=== PATIENT | female | born 1965 | race Caucasian/White ===

== ENCOUNTER 2023-08-01 13:36 | Emergency (ER) | payer OTHER, SELFPAY ==
--- NOTE | ~2023-08-01 | CT_ITS ---
EXAMINATION: CT abdomen pelvis w IV con CLINICAL INFORMATION: Reason for Exam epi and RUQ pain, pls eval for choledoco COMPARISON: No prior CT available for comparison. TECHNIQUE: Multidetector volumetric imaging was performed from the superior aspect of the liver through the pubic symphysis 85 mL Omnipaque 350 injected Sagittal and coronal reformatted images were obtained on the technologist's workstation. This CT examination was performed using dose optimization techniques as appropriate, variously including the following: *Automated exposure control *Adjustment of mA and/or kV according to patient size (this includes techniques or standardized protocols for targeted exams where dose is matched to indication/reason for exam; i.e. extremities or head) *Use of iterative reconstruction technique DLP: 532 mGy-cm FINDINGS: LOWER THORAX: Included lung bases are clear. HEPATOBILIARY: No focal hepatic lesions. No biliary ductal dilatation. GALLBLADDER: Gallbladder has been removed SPLEEN: Spleen is normal in size. PANCREAS: No focal mass or ductal dilatation. STOMACH AND GASTROINTESTINAL TRACT: Stomach is grossly unremarkable. There is no bowel distention or thickening. Appendix not directly visualized however no dilated blind loop around the cecum to suggest appendicitis. ADRENALS: No adrenal nodules. KIDNEYS/URETERS: There is fullness of renal pelvis sees bilaterally right more than left, probably extrarenal pelvis versus hydronephrosis with a transition at the ureteropelvic junction no stone or obstructing mass found. There is a simple cyst in the left kidney 1.7 cm Bosniak class I, with Hounsfield unit attenuation of 8, this is likely benign, no follow-up imaging is recommended. URINARY BLADDER: Partially decompressed. PELVIC VISCERA: There is circumferential wall thickening of the rectal wall and some fullness at the anorectal junction concerning for proctitis, cannot rule out pathologic process. Attention to correlation with physical exam and follow-up outpatient GI consultation for screening colonoscopy recommended. PERITONEUM: No free air or fluid. LYMPH NODES: No lymphadenopathy. VASCULAR:Abdominal aorta normal in size, no aneurysm found. BONES, ABDOMINAL WALL AND SOFT TISSUES: Age-appropriate changes of the spine and skeletal system, no destructive osteolytic or osteosclerotic bone lesion found CT/CT abdomen pelvis w IV con IMPRESSION: 1. There is fullness of renal pelvis bilaterally right more than left, probably extrarenal pelvis versus hydronephrosis with a transition at the UPJ, no stone or obstructing mass found, this could be congenital or developmental due to crossing vessel. 2. There is circumferential wall thickening of the rectum and fullness of the anorectal junction concerning for PROCTITIS, cannot rule out pathologic process and rectal mass. Please correlate with physical exam, follow up GI consultation recommended, correlation with colonoscopy. 3. Appendix not directly visualized however no dilated blind loop around the cecum to suggest appendicitis. 4. Gallbladder has been removed. (Referring physician staff is being called, by physician staff assistance, to be alerted of the above critical findings and recommendati08/01/2023 10:57 PM:57 PM EM
[2023-08-01 13:39] VITALS: BP 126/73; PULSE 92; RESP 18; TEMP 36.4; O2SAT 97; BMI 29.3
--- NOTE | 2023-08-01 13:49 | ED_ITS ---
HPI - General Adult General Chief complaint: Abdominal Pain Stated complaint: Abd pain Time Seen by Provider: 08/01/23 20:58 History of Present Illness HPI narrative: The patient is a 57-year-old woman with a history of a cholecystectomy, an appendectomy, and hysterectomy. She presents with 2 days of abdominal pain that she says is primarily in her epigastrium but which seems to radiate to the right side towards her right flank. She says that the pain is worse than the pain she experienced when she had her gallbladder removed. She says that she feels like her abdomen is exploding. She has had nausea but no vomiting. She had multiple loose stools yesterday and took Imodium. She only had 2 bowel movements today. Decreased appetite. No fever. Related Data Previous Rx's Medication Instructions Recorded cephalexin 500 mg capsule 500 mg PO BID #10 caps 08/02/23 omeprazole 40 mg capsule,delayed 40 mg PO DAILY #30 caps 08/02/23 release sucralfate 1 gram tablet 1 g PO TID PRN Epigastric pain #60 08/02/23 tabs Allergies Allergy/AdvReac Type Severity Reaction Status Date / Time No Known Allergies Allergy Verified 08/01/23 13:50 Review of Systems 2 Review of Systems: Yes all other systems are reviewed and are negative [facility] Social History Social History Smoked in Last 30 Days: No Use of substances other than those prescribed or required for medical reasons: No Advance Directives: No Advance Directives Information Provided: No Patient : No Physical Exam ED Vital Signs: Vital Signs - 24 hr 08/01/23 13:39 08/01/23 20:53 Temperature 97.5 F 97.6 F Pulse Rate 92 82 Respiratory Rate 18 16 Blood Pressure 126/73 121/63 Pulse Oximetry 97 98 Oxygen Delivery Method Room Air Room Air BMI result Body Mass Index 29.3 Const Other: The patient is awake, alert, pleasant, cooperative. She does not appear in obvious distress. HENMT Other: Face is symmetrical, mucous membranes moist Eyes Other: Pupils are round equal, conjunctivae are clear, extraocular movements intact Neck Other: No swelling, no JVD Resp Effort & Inspection: normal respiratory effort Auscultation: clear to auscultation bilaterally Cardio Rate: regular rate Rhythm: regular rhythm Heart sounds: S1 normal heart sound present and S2 normal heart sound present GI Other: The abdomen is soft. There is tenderness in both the right upper and lower quadrants and in the epigastrium. Skin Other: Skin is dry and unremarkable Neuro Other: Awake, alert, appropriate, moving all extremities normally, grossly neurologically intact. Extrem Other: No peripheral edema Course Course Course Narrative: RME performed by Amanda Garcia PA-C. Patient is a 57 year old assigned female at presenting to the emergency department with abdominal pain. Detailed physical exam and review of systems are deferred to the order picker/assembler. Labs ordered. Patient placed back in the waiting room pending room availability and results. Medications Administered Discontinued Medications Generic Name Dose Route Start Last Admin Trade Name Freq PRN Reason Stop Dose Admin Cephalexin HCl 500 mg 08/02/23 00:15 08/02/23 00:34 Cephalexin 500 Mg Capsule PO 08/02/23 00:16 500 mg ONCE ONE Administration Famotidine 20 mg 08/01/23 21:10 08/01/23 21:59 Famotidine/Pf 20 Mg/2 Ml Vial IVPUSH 08/01/23 21:11 20 mg ONCE ONE Administration Sodium Chloride 1,000 mls @ 999 mls/hr 08/01/23 21:15 08/01/23 23:29 Ns IV 08/01/23 22:15 Infused .Q1H1M MELITA Infusion Promethazine HCl 12.5 mg/ 50.5 mls @ 202 mls/hr 08/01/23 21:10 08/01/23 22:50 Sodium Chloride IV 08/01/23 21:11 Infused ONCE ONE Infusion Iohexol 85 ml 08/01/23 22:24 08/01/23 22:24 Iohexol 350 Mg/Ml 100 Ml Infus..Btl IV 08/01/23 22:25 85 ml ONCE ONE Administration Ketorolac Tromethamine 10 mg 08/01/23 21:10 08/01/23 21:59 Ketorolac Tromethamine 15 Mg/Ml Vial IVPUSH 08/01/23 21:11 10 mg ONCE ONE Administration Medical Decision Making Medical Decision Making [facility] Narrative: The patient is a 57-year-old female who presents with epigastric abdominal pain. She also reports having had a lot of diarrhea although this was mostly yesterday and improved with Imodium. She also has pain that radiates from her epigastrium to her right flank. Clinically the patient does not seem septic or unstable in any way. Vital signs are unremarkable. The patient's description of her epigastric symptoms seems most likely suggestive of gastritis. She has had a cholecystectomy (she has also had an appendectomy and a hysterectomy). The patient's labs were quite benign. Given the patient's extensive surgical history I felt it would be reasonable to obtain a CT of the abdomen although I did not have a terribly high suspicion for an acute surgical process. The patient's CT has a number of findings. The patient has bilateral fullness of the renal pelvis described as ?probably extrarenal pelvis versus hydronephrosis with a transition at the UPJ, no stone or obstructing mass found, this could be congenital or developmental due to crossing vessel. ? This findings bilateral although more prominent on the right. The CT also shows circumferential wall thickening of the rectum and fullness of the anorectal junction concerning for proctitis, can not rule out pathologic process and rectal mass. ? Given the patient's complaint of diarrhea she may have some inflammatory process related to her colon and rectum but she has a normal white count, and normal CRP. I doubt that the findings of proctitis would be an indication for antibiotics. With regard to the abnormal renal findings I contacted [facility] to see if there was any recent CT scan at that facility which might help decide whether the findings are chronic. I could not get any imaging studies from [facility]. The patient's urinalysis is not very abnormal. She has 6-10 white cells and trace leukocyte esterase and a small amount of blood. She was very equivocal about the question of urinary symptoms. She will be placed on cephalexin. Ultimately the patient felt much better after a dose of Toradol and famotidine. Given that her chief complaint was epigastric pain I still think that gastritis is probably the most likely cause of her pain and her other CT findings may be somewhat incidental. She will need to follow up with Urology to evaluate her renal pelvis findings. She should also follow up with her PCP and probably Gastroenterology with regard to the question of proctitis. She looks comfortable at the time of discharge and understands the need for follow-up. Lab Data 08/01/23 13:58 08/01/23 13:58 Labs: Lab Results 08/01/23 08/01/23 Range/Units 13:58 19:36 WBC 8.2 (4.8-10.8) X10*3/uL RBC 4.73 (4.20-5.50) X10*6/uL Hgb 13.8 (12.0-16.0) g/dl Hct 43.0 (37.0-47.0) % MCV 90.9 (80.0-98.0) fL MCH 29.2 (27.0-33.0) pg MCHC 32.1 (31.0-35.0) g/dl RDW 12.8 (11.0-16.0) % Plt Count 312 (160-400) X10*3/uL MPV 8.2 L (9.4-12.3) fL Immature Gran % (Auto) 0.2 (0.0-0.4) % Neut % (Auto) 59.0 (45-73) % Lymph % (Auto) 29.3 (20-40) % [place] % (Auto) 10.7 (2-11) % Eos % (Auto) 0.4 (0-4) % Baso % (Auto) 0.4 (0-2) % Lymph # (Auto) 2.4 (1.2-4.9) X10*3/uL [place] # (Auto) 0.9 (0.1-1.2) X10*3/uL Eos # (Auto) 0.0 (0.0-0.4) X10*3/uL Baso # (Auto) 0.0 (0.0-0.2) X10*3/uL Abs Immat Gran (auto) 0.02 (0.00-0.03) X10*3/uL Absolute Neuts (auto) 4.8 (2.0-8.3) x10*3/uL Absolute Nucleated RBC 0.000 (0.0-0.012) X10*3/uL Nucleated RBC % (auto) 0.0 (0.0-0.2) /100WBC Sodium 143 (135-145) mmol/L Potassium 4.4 (3.3-5.1) mmol/L Chloride 107 (96-108) mmol/L Carbon Dioxide 29 (22-29) mmol/L Anion Gap 11 L (12-20) BUN 15 (9-16) mg/dL Creatinine 0.72 (0.5-1.4) mg/dL Estim Creat Clear Calc 70.2 Estimated GFR > 60 Random Glucose 116 H (60-115) mg/dL Calcium 9.6 (8.4-10.2) mg/dL Total Bilirubin 0.4 (0.0-1.0) mg/dL AST 20 (5-31) U/L ALT 32 H (0-31) U/L Alkaline Phosphatase 79 (39-117) U/L C-Reactive Protein 0.19 (< or = 0.50) mg/dL Total Protein 7.9 (6.5-8.0) g/dL Albumin 4.3 (3.5-5.0) g/dL Lipase 31 (8-78) U/L Urine Color Yellow Urine Appearance Clear Urine pH 5.5 (5.0-9.0) Ur Specific [place] 1.025 (1.005-1.025) Urine Protein Negative (Neg-Trace) mg/dL Urine Glucose (UA) Negative (Negative) mg/dL Urine Ketones Negative (Negative) mg/dL Urine Blood Small (1+) H (Negative) Urine Nitrite Negative (Negative) Ur Leukocyte Esterase Trace H (Negative) Urine RBC 0-2 (0-2) /HPF Urine WBC 6-10 H (0-5) /HPF Ur Squamous Epith Cells 3-5 (0-2) /HPF Urine Bacteria 1+ (None Seen) Hyaline Casts 0-2 (0-2) /LPF Discharge Plan Discharge Clinical Impression: Acute epigastric pain, Bilateral hydronephrosis, Proctitis Patient Disposition: Home, Self-Care Instructions: Gastritis (ED) Additional Instructions: I think the pain in the middle of your upper abdomen is most likely related to stomach acid problems. This is called gastritis. You have been prescribed omeprazole. Please take the omeprazole once a day on a regular basis. This helps reduce acid production. In addition to the omeprazole sucralfate as a medication you may use on an as- needed basis. You may take this up to 3 times a day as needed. Your urine test suggested the possibility of a mild urinary infection. Please take the cephalexin (an antibiotic) 2 times a day as prescribed until done. Your CT scan shows that you have some swelling on each of your kidneys. This is called hydronephrosis. I do not know if this is something that you have had for a long time. Please contact the urology office to make an appointment to review this finding further. Additionally the CT scan shows some inflammatory changes near your rectum. The significance of this finding is unclear. I think it would be good for you to make an appointment with a hot walker to discuss this further. Therefore please plan on following up with your primary care doctor, Urology, and gastroenterology. Return to the emergency room if worse Prescriptions: New cephalexin 500 mg capsule 500 mg PO BID Qty: 10 0RF omeprazole 40 mg capsule,delayed release(DR/EC) 40 mg PO DAILY Qty: 30 0RF sucralfate 1 gram tablet 1 g PO TID PRN (Reason: Epigastric pain) Qty: 60 0RF Referrals: Abimael Espinosa MD [Physician] - (bilateral hydronephrosis) Macie Harrison MD [Primary Care Provider] - (Gastritis, bilateral hydronephrosis without stones) Mireille Heath MD [Physician] - (findings of proctitis) Interventions: ED Discharge Assessment Last Done: 08/02/23 00:42 Discharge Date/Time: 08/02/23 00:42
[2023-08-01 14:02] LABS: MANUAL DIFF FLAG NO
[2023-08-01 14:03] LABS: Basophils Percent Auto 0.4 % (0-2); Eosinophils Percent Auto 0.4 % (0-4); Hemoglobin 13.8 g/dl (12.0-16.0); Imm Gran Abs Auto 0.02 X10*3/uL (0.00-0.03); Imm Gran Pct Auto 0.2 % (0.0-0.4); Lymphocytes Absolute Auto 2.4 X10*3/uL (1.2-4.9); Lymphocytes Percent Auto 29.3 % (20-40); Mean Corpuscular HGB Conc 32.1 g/dl (31.0-35.0); Mean Corpuscular Hemoglobin 29.2 pg (27.0-33.0); Mean Corpuscular Volume 90.9 fL (80.0-98.0); Mean Platelet Volume 8.2 fL (9.4-12.3); Monocytes Absolute Auto 0.9 X10*3/uL (0.1-1.2); Monocytes Percent Auto 10.7 % (2-11); Neutrophils Absolute Auto 4.8 x10*3/uL (2.0-8.3); Platelet Count 312 X10*3/uL (160-400); Red Blood Count 4.73 X10*6/uL (4.20-5.50); Red Cell Distribution Width 12.8 % (11.0-16.0); White Blood Count 8.2 X10*3/uL (4.8-10.8)
[2023-08-01 14:22] LABS: Alanine Aminotransferase 32 U/L (0-31); Albumin Level 4.3 g/dL (3.5-5.0); Alkaline Phosphatase 79 U/L (39-117); Anion Gap 11 (12-20); Aspartate Amino Transferase 20 U/L (5-31); Bilirubin Total 0.4 mg/dL (0.0-1.0); Blood Urea Nitrogen 15 mg/dL (9-16); Calcium 9.6 mg/dL (8.4-10.2); Carbon Dioxide 29 mmol/L (22-29); Chloride 107 mmol/L (96-108); Creatinine Clr Calc Pharmacy 70.2; Estimated Glomerular Filt Rate > 60; Glucose Random 116 mg/dL (60-115); Potassium 4.4 mmol/L (3.3-5.1); Sodium 143 mmol/L (135-145); Total Protein 7.9 g/dL (6.5-8.0)
[2023-08-01 19:46] LABS: Appearance Urine Clear; Color Urine Yellow; Glucose Urine UA Negative (Negative); Leukocyte Esterase Urine Trace (Negative); Nitrite Urine Negative (Negative); PH 5.5 (5.0-9.0); Specific Gravity - Urine 1.025 (1.005-1.025); UMIC TRIGGER UACC YES; Urine Blood Small (1+) (Negative); Urine Ketones Negative (Negative); Urine Protein Negative (Neg-Trace)
[2023-08-01 19:56] LABS: Bacteria Urine 1+ (None Seen); Hyaline Casts Urine 0-2 /LPF (0-2); RBC Urine 0-2 /HPF (0-2); UACC Culture Trigger YES
[2023-08-01 20:53] VITALS: BP 121/63; PULSE 82; RESP 16; TEMP 36.4; O2SAT 98
[2023-08-01 21:13] LABS: C Reactive Protein 0.19 mg/dL (< or = 0.50); Lipase 31 U/L (8-78)
[2023-08-01] MEDS: 0.9 % Sodium Chloride 1,000 ML 999 ML IV (21:31)
[2023-08-01] MEDS: Ketorolac Tromethamine 15 MG/ML VIAL 10 MG IVPUSH (21:59)
[2023-08-01] MEDS: Famotidine/PF 20 MG/2 ML VIAL IVPUSH (21:59)
[2023-08-01] MEDS: iohexoL 350 MG/ML 100 ML INFUS..BTL 85 ML IV (22:24)
[2023-08-02] MEDS: cephALEXin 500 MG CAPSULE PO (00:34)
== END 2023-08-02 00:42 | disposition home or self-care (01) ==
PROVIDERS: Physician Assistant Medical; Emergency Provider Emergency Medicine; PCP Internal Medicine
DX: R10.13 Epigastric pain (principal); N13.30 Unspecified hydronephrosis; K62.89 Other specified diseases of anus and rectum; Z90.49 Acquired absence of other specified parts of digestive tract; Z90.710 Acquired absence of both cervix and uterus
CPT/HCPCS: 36415; 74177; 80053; 81001; 83690; 85025; 86140; 87086; 96361; 96374; 96375; 99284; 99285; J1885; J2550; Q9967

== ENCOUNTER 2023-10-03 11:09 | Outpatient (AMB) | payer OTHER, SELFPAY ==
--- NOTE | 2023-10-03 11:15 | A.OFFVIS_ITS ---
Intake Visit Reasons: extrarenal pelvis versus hydronephrosis Intake Note: NEW Patient presents today to established treatment for Hydronephrosis: Meds- None Allergies to Antibiotic- No Known Allergies Blood Thinner- None Refrigerator Room Clerk Required: No Accompanied by: Self / Same As Patient Allergies No Known Allergies Allergy (Verified 10/03/23 11:16) HPI Comments Details: 10/03/2023 Cecilio is a 57 year old female who is here for evaluation, she states she went to the emergency room 08/01/2023 for abdominal pain she describes the pain starting on the right side. She denies UTI symptoms, dysuria or gross hematuria. I reviewed the ER records and CT imaging, findings extra renal pelvis versus hydronephrosis right greater than left. Plan discussed Lasix renal scan. 08/01/23-CTAP: fullness of renal pelvis bilaterally right more than left, probably extrarenal pelvis versus hydronephrosis with a transition at the UPJ, no stone or obstructing mass found, this could be congenital or developmental due to crossing vessel. 10/03/2023: Plan-Lasix renal scan Review of Systems Const All systems reviewed & are unremarkable except as noted in HPI and below Reports no additional complaints Eyes Reports no additional complaints ENT Reports no additional complaints Card Reports no additional complaints Resp Reports no additional complaints GI Reports no additional complaints Reports as per HPI Musc Reports no additional complaints Skin/Breast Reports system reviewed and no additional complaints, except as documented Neuro Reports no additional complaints Psych Reports no additional complaints Endo Reports no additional complaints Richard/Lymph Reports no additional complaints Aller/Immun Reports no additional complaints Physical Exam Const General: cooperative, healthy appearing and no acute distress Orientation/consciousness: patient oriented x3 HEENT Head: Yes normal to inspection, Yes normocephalic and Yes atraumatic Eyes Conjunctivae: conjunctivae normal Neck Neck: Yes normal visual inspection and Yes trachea midline Chest Chest palpation & inspection: normal inspection of the chest Resp Effort & Inspection: normal respiratory effort Cardio Rate: regular rate GI Inspection: Yes normal to inspection Skin General skin exam: no rashes or lesions noted Neuro General: patient oriented x3 Extrem General: No edema Psych Appearance: grossly normal Results AMB Urinalysis, Automated UA Leukoctes 15 Llii/uL Last Edit by ALEKS Adkins on 10/03/23 11:50 UA Nitrite Negative Last Edit by ALEKS Adkins on 10/03/23 11:50 UA Urobilinogen 0.2 mg/dL Last Edit by ALEKS Adkins on 10/03/23 11:5 0 UA Protein 0 mg/dL Last Edit by Chen Issa Robert on 10/03/23 11:50 UA pH 5.5 Last Edit by ALEKS Adkins on 10/03/23 11:50 UA Blood 80 Nicolas/uL Last Edit by Chen Issa Robert on 10/03/23 11:50 2+ Chen Issa 10/03/23 11:50 UA Specific [place] 1.025 Last Edit by ALEKS Adkins on 10/03/23 11: 50 UA Ketone Negative Last Edit by Chen Issa Robert on 10/03/23 11:50 UA Bilirubin 0 mg/dL Last Edit by ALEKS Adkins on 10/03/23 11:50 UA Glucose 0 mg/dL Last Edit by Chen Issa Robert on 10/03/23 11:50 Results Reviewed Results Reviewed: Laboratory Last Values Urine pH (Auto) 5.5 10/03/23 11:17 Specific [place] (Auto) 1.025 10/03/23 11:17 Urine Protein (Auto) 0 mg/dL 10/03/23 11:17 Glucose (UA)(Auto) 0 mg/dL 10/03/23 11:17 Urine Ketones (Auto) Negative 10/03/23 11:17 Urine Blood (Auto) 80 Nicolas/uL 10/03/23 11:17 Urine Nitrite (Auto) Negative 10/03/23 11:17 Urine Bilirubin (Auto) 0 mg/dL 10/03/23 11:17 Urine Urobilinogen (Auto) 0.2 mg/dL 10/03/23 11:17 Leukocyte Esterase (Auto) 15 Lili/uL 10/03/23 11:17 Date of Service: 08/01/23 EXAMINATION: CT abdomen pelvis w IV con CLINICAL INFORMATION: Reason for Exam epi and RUQ pain, pls eval for choledoco COMPARISON: No prior CT available for comparison. TECHNIQUE: Multidetector volumetric imaging was performed from the superior aspect of the liver through the pubic symphysis 85 mL Omnipaque 350 injected Sagittal and coronal reformatted images were obtained on the technologist's workstation. This CT examination was performed using dose optimization techniques as appropriate, variously including the following: *Automated exposure control *Adjustment of mA and/or kV according to patient size (this includes techniques or standardized protocols for targeted exams where dose is matched to indication/reason for exam; i.e. extremities or head) *Use of iterative reconstruction technique DLP: 532 mGy-cm FINDINGS: LOWER THORAX: Included lung bases are clear. HEPATOBILIARY: No focal hepatic lesions. No biliary ductal dilatation. GALLBLADDER: Gallbladder has been removed SPLEEN: Spleen is normal in size. PANCREAS: No focal mass or ductal dilatation. STOMACH AND GASTROINTESTINAL TRACT: Stomach is grossly unremarkable. There is no bowel distention or thickening. Appendix not directly visualized however no dilated blind loop around the cecum to suggest appendicitis. ADRENALS: No adrenal nodules. KIDNEYS/URETERS: There is fullness of renal pelvis sees bilaterally right more than left, probably extrarenal pelvis versus hydronephrosis with a transition at the ureteropelvic junction no stone or obstructing mass found. There is a simple cyst in the left kidney 1.7 cm Bosniak class I, with Hounsfield unit attenuation of 8, this is likely benign, no follow-up imaging is recommended. URINARY BLADDER: Partially decompressed. PELVIC VISCERA: There is circumferential wall thickening of the rectal wall and some fullness at the anorectal junction concerning for proctitis, cannot rule out pathologic process. Attention to correlation with physical exam and follow-up outpatient GI consultation for screening colonoscopy recommended. PERITONEUM: No free air or fluid. LYMPH NODES: No lymphadenopathy. VASCULAR:Abdominal aorta normal in size, no aneurysm found. BONES, ABDOMINAL WALL AND SOFT TISSUES: Age-appropriate changes of the spine and skeletal system, no destructive osteolytic or osteosclerotic bone lesion found IMPRESSION: 1. There is fullness of renal pelvis bilaterally right more than left, probably extrarenal pelvis versus hydronephrosis with a transition at the UPJ, no stone or obstructing mass found, this could be congenital or developmental due to crossing vessel. 2. There is circumferential wall thickening of the rectum and fullness of the anorectal junction concerning for PROCTITIS, cannot rule out pathologic process and rectal mass. Please correlate with physical exam, follow up GI consultation recommended, correlation with colonoscopy. 3. Appendix not directly visualized however no dilated blind loop around the cecum to suggest appendicitis. 4. Gallbladder has been removed. Assessment & Plan Assessment & Plan (1) Right flank pain: Code(s): R10.9 - Unspecified abdominal pain Category: Medical (2) UPJ (ureteropelvic junction) obstruction: Code(s): N13.5 - Crossing vessel and stricture of ureter without hydronephrosis Category: Medical Plan Lasix renal scan Orders: Orders AMB Urinalysis Automated 10/03/23 Z13.9 - Encounter for screening, unspecified NM renal flow w pharm int 10/03/23 N13.5 - Crossing vessel and stricture of ureter without hydronephrosis, R10.9 - Unspecified abdominal pain Urine Cytology 10/03/23 N13.5 - Crossing vessel and stricture of ureter without hydronephrosis, R31.9 - Hematuria, unspecified Medications: Discontinued cephalexin Discontinued Reason: Patient Completed Course 500 mg PO BID 10 caps 0RF sucralfate Discontinued Reason: Patient Completed Course 1 g PO TID PRN 60 tabs 0RF Epigastric pain omeprazole Discontinued Reason: Patient Completed Course 40 mg PO DAILY 30 caps 0RF Patient Instructions: The patient had an opportunity to ask questions regarding treatment plan. The patient expressed understanding and agreement with the above treatment plan. The patient is aware they should contact our office by phone for worsening of their current condition or the appearance of new symptoms. Compliance is encouraged with any medications and followup testing that is ordered. It is a privilege to be allowed the opportunity to participate in the urologic care of your patient. If you have any questions or concerns regarding treatment for the above conditions please do not hesitate to contact me. The office telephone contact is [phone]. This note is constructed in part using voice recognition software. While every effort has been made to ensure accuracy circuit board drafter errors may have been included. Yours sincerely, Bharath Sands MD Coding Level of Care Code New Pt Level 4 (38000) Diagnoses Right flank pain R10.9 UPJ (ureteropelvic junction) obstruction N13.5
== END 2023-10-03 12:19 | disposition home or self-care (01) ==
PROVIDERS: PCP Internal Medicine; Visit Provider Urology
DX: R10.9 Unspecified abdominal pain (principal); N13.5 Crossing vessel and stricture of ureter without hydronephrosis
CPT/HCPCS: 99204

== ENCOUNTER 2023-10-03 11:09 | Outpatient (REF) | payer OTHER, SELFPAY ==
[2023-10-03 16:29] LABS: Urine Cytology See Pathology rpt
== END 2023-10-03 11:10 | disposition home or self-care (01) ==
LOC: HO.LAB 11:09
PROVIDERS: PCP Internal Medicine; Visit Provider Urology
DX: R10.9 Unspecified abdominal pain (principal); N13.5 Crossing vessel and stricture of ureter without hydronephrosis
CPT/HCPCS: 81003; 88112; 99202

== ENCOUNTER → 2023-11-13 11:03 | Outpatient (REF) | payer OTHER, SELFPAY ==
--- NOTE | ~2023-11-13 | NM_ITS ---
EXAMINATION: RENAL DYNAMIC IMAGING STUDY WITH LASIX CLINICAL INFORMATION: Right flank pain, UPJ obstruction COMPARISON: No previous radionuclide renal scan is available for comparison. CT of the abdomen dated 08/01/2023 is available for comparison. TECHNIQUE: Serial gamma scintillation camera images were obtained over the posterior trunk during the initial transit and subsequent distribution of a bolus intravenous injection of 10 mCi of Tc-99m DTPA. At 30 minutes later, 34 mg of Lasix was administered intravenously and an additional 29 minutes of images obtained. FINDINGS: Initial rapid sequence images show prompt perfusion to both kidneys. The left kidney is smaller than the right and shows mildly diminished perfusion, probably proportional to its smaller size. Subsequent sequential static images obtained up to 30 minutes show good concentration in both kidneys. The left kidney is smaller in size than the right. There is evidence of excretory function bilaterally by 3 to 4 minutes post injection. At 30 minutes postinjection almost all the excretory activity is in urinary bladder with only faint visualization of activity in renal pelves. Bilateral extrarenal pelves are probably present and significant dilatation of the renal collecting system is not present on either side. Following Lasix administration, there is continued good washout from both renal collecting systems. At the end of the study there is no significant retained activity in either renal collecting system and a full urinary bladder is visualized. Meaningful T-1/2 washout times following Lasix administration cannot be calculated on either side because of the minimal retention in both renal collecting systems at the time of Lasix administration. The relative function of the two kidneys based on the 2-3 minute images are: Left 45% and right 55%. NM/NM renal flow w pharm int IMPRESSION: LEFT KIDNEY: Normal perfusion and function. The relative decrease in function of this kidney compared to the right is likely due to its smaller size. There is no hydronephrosis or outflow obstruction. RIGHT KIDNEY: Normal perfusion and function. No hydronephrosis or outflow obstruction.
== END ==
LOC: HO.NUCMED 11:03
PROVIDERS: PCP Internal Medicine; Visit Provider Urology
DX: R10.9 Unspecified abdominal pain (principal); N13.5 Crossing vessel and stricture of ureter without hydronephrosis
CPT/HCPCS: 78708; A9539; J1940

== ENCOUNTER 2023-12-08 09:27 | Outpatient (AMB) | payer OTHER, SELFPAY ==
--- NOTE | 2023-12-08 09:28 | MHC.OFFVIS ---
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 I have discussed with the patient and her that right sided pain is not related to the right kidney. Cystoscopy findings: Mild inflammatory changes consistent with cystitis, no suspicious lesions noted. Review of chart: 10/03/2023 Cecilio is a 57 year old female who is here for evaluation, she states she went to the emergency room 08/01/2023 for abdominal pain she describes the pain starting on the right side. She denies UTI symptoms, dysuria or gross hematuria. I reviewed the ER records and CT imaging, findings extra renal pelvis versus hydronephrosis right greater than left. Plan discussed Lasix renal scan. 08/01/23-CTAP: fullness of renal pelvis bilaterally right more than left, probably extrarenal pelvis versus hydronephrosis with a transition at the UPJ, no stone or obstructing mass found, this could be congenital or developmental due to crossing vessel. Review of Systems Const All systems reviewed & are unremarkable except as noted in HPI and below Reports no additional complaints Eyes Reports no additional complaints ENT Reports no additional complaints Card Reports no additional complaints Resp Reports no additional complaints GI Reports no additional complaints Reports as per HPI Musc Reports no additional complaints Skin/Breast Reports system reviewed and no additional complaints, except as documented Neuro Reports no additional complaints Psych Reports no additional complaints Endo Reports no additional complaints Richard/Lymph Reports no additional complaints Aller/Immun Reports no additional complaints Office Procedures Cystoscopy Consent Discussed risk and benefit or proposed procedure with the patient. Information consent for procedure given to the patient. Discussed technical aspects, risks, benefits and alternatives in full. Addressed all of the patient's questions and concerns regarding the procedure. The patient demonstrated knowledge and understanding. They wish to proceed with this procedure. Preparation The patient was prepped in the usual manner. A telephone exchange operator was present and in the room. Genitalia was prepped with betadine solution in a sterile manner. Lidocaine Jelly 2% was placed into the urethra and 16Fr flexible Olympus cystoscope was inserted into the meatus after adequate lubrication. Procedure Time out per protocol performed. Bladder Inspection Bladder Inspection: The bladder was inspected in its entirety with utilization retroflexion displaying: Tumor(s): no suspicious bladder lesions visualized Trabeculation: NA Mucosal Erthema: Mild Orifices: normal shape and position Urethra: normal Cystoscopy findings: Mild inflammatory changes consistent with cystitis, no suspicious lesions noted, no suspicious bladder lesions visualized [id number] DISPOSABLE SCOPE URO-G FLEXIBLE SCOPE Procedure code (CPT) selection complete Office Meds lidocaine HCl 2 % mucosal jelly in applicator Performing Provider: Bharath Sands MD [facility] Administered by: Saud Paulino LPN on 12/08/23 09:39 Dose Route Admin Location Dispensed Lot Number Expiration Date [facility] [place] [employer] 10 mL intra-urethral 10 mL naproxen 500 mg tablet Performing Provider: Bharath Sands MD Performing Location: [facility] Administered by: Saud Paulino LPN on 12/08/23 09:39 Dose Route Admin Location Dispensed Lot Number Expiration Date [facility] [place] [employer]wall [employer] 500 mg PO 1 tab ciprofloxacin HCl 500 mg tablet Performing Provider: Bharath Sands MD Performing Location: [facility] Administered by: Saud Paulino LPN on 12/08/23 09:39 Dose Route Admin Location Dispensed Lot Number Expiration Date [place] [employer] 500 mg PO 1 tab Results AMB Urinalysis, Automated UA Leukoctes 0 Lili/uL Last Edit by FAMILIA Kim on 12/08/23 09:38 UA Nitrite Negative Last Edit by FAMILIA Kim on 12/08/23 09:38 UA Urobilinogen 0.2 mg/dL Last Edit by FAMILIA Kim on 12/08/23 09:38 UA Protein 0 mg/dL Last Edit by FAMILIA Kim on 12/08/23 09:38 UA pH 5.5 Last Edit by FAMILIA Kim on 07/15/24 09:38 UA Blood 25 Nicolas/uL Last Edit by FAMILIA Kim on 12/08/23 09:38 UA Specific [place] 1.025 Last Edit by FAMILIA Kim on 12/08/23 09:38 UA Ketone Negative Last Edit by FAMILIA Kim on 12/08/23 09:38 UA Bilirubin 0 mg/dL Last Edit by FAMILIA Kim on 12/08/23 09:38 UA Glucose 0 mg/dL Last Edit by FAMILIA Kim on 12/08/23 09:38 Results Reviewed Results Reviewed: Laboratory Last Values Urine pH (Auto) 5.5 12/08/23 09:38 Specific [place] (Auto) 1.025 12/08/23 09:38 Urine Protein (Auto) 0 mg/dL 12/08/23 09:38 Glucose (UA)(Auto) 0 mg/dL 12/08/23 09:38 Urine Ketones (Auto) Negative 12/08/23 09:38 Urine Blood (Auto) 25 Nicolas/uL 12/08/23 09:38 Urine Nitrite (Auto) Negative 12/08/23 09:38 Urine Bilirubin (Auto) 0 mg/dL 12/08/23 09:38 Urine Urobilinogen (Auto) 0.2 mg/dL 12/08/23 09:38 Leukocyte Esterase (Auto) 0 Lili/uL 12/08/23 09:38 Date of Service: 11/13/23 EXAMINATION: RENAL DYNAMIC IMAGING STUDY WITH LASIX CLINICAL INFORMATION: Right flank pain, UPJ obstruction COMPARISON: No previous radionuclide renal scan is available for comparison. CT of the abdomen dated 08/01/2023 is available for comparison. TECHNIQUE: Serial gamma scintillation camera images were obtained over the posterior trunk during the initial transit and subsequent distribution of a bolus intravenous injection of 10 mCi of Tc-99m DTPA. At 30 minutes later, 34 mg of Lasix was administered intravenously and an additional 29 minutes of images obtained. FINDINGS: Initial rapid sequence images show prompt perfusion to both kidneys. The left kidney is smaller than the right and shows mildly diminished perfusion, probably proportional to its smaller size. Subsequent sequential static images obtained up to 30 minutes show good concentration in both kidneys. The left kidney is smaller in size than the right. There is evidence of excretory function bilaterally by 3 to 4 minutes post injection. At 30 minutes postinjection almost all the excretory activity is in urinary bladder with only faint visualization of activity in renal pelves. Bilateral extrarenal pelves are probably present and significant dilatation of the renal collecting system is not present on either side. Following Lasix administration, there is continued good washout from both renal collecting systems. At the end of the study there is no significant retained activity in either renal collecting system and a full urinary bladder is visualized. Meaningful T-1/2 washout times following Lasix administration cannot be calculated on either side because of the minimal retention in both renal collecting systems at the time of Lasix administration. The relative function of the two kidneys based on the 2-3 minute images are: Left 45% and right 55%. IMPRESSION: LEFT KIDNEY: Normal perfusion and function. The relative decrease in function of this kidney compared to the right is likely due to its smaller size. There is no hydronephrosis or outflow obstruction. RIGHT KIDNEY: Normal perfusion and function. No hydronephrosis or outflow obstruction. Date of Service: 08/01/23 EXAMINATION: CT abdomen pelvis w IV con CLINICAL INFORMATION: Reason for Exam epi and RUQ pain, pls eval for choledoco COMPARISON: No prior CT available for comparison. TECHNIQUE: Multidetector volumetric imaging was performed from the superior aspect of the liver through the pubic symphysis 85 mL Omnipaque 350 injected Sagittal and coronal reformatted images were obtained on the technologist's workstation. This CT examination was performed using dose optimization techniques as appropriate, variously including the following: *Automated exposure control *Adjustment of mA and/or kV according to patient size (this includes techniques or standardized protocols for targeted exams where dose is matched to indication/reason for exam; i.e. extremities or head) *Use of iterative reconstruction technique DLP: 532 mGy-cm FINDINGS: LOWER THORAX: Included lung bases are clear. HEPATOBILIARY: No focal hepatic lesions. No biliary ductal dilatation. GALLBLADDER: Gallbladder has been removed SPLEEN: Spleen is normal in size. PANCREAS: No focal mass or ductal dilatation. STOMACH AND GASTROINTESTINAL TRACT: Stomach is grossly unremarkable. There is no bowel distention or thickening. Appendix not directly visualized however no dilated blind loop around the cecum to suggest appendicitis. ADRENALS: No adrenal nodules. KIDNEYS/URETERS: There is fullness of renal pelvis sees bilaterally right more than left, probably extrarenal pelvis versus hydronephrosis with a transition at the ureteropelvic junction no stone or obstructing mass found. There is a simple cyst in the left kidney 1.7 cm Bosniak class I, with Hounsfield unit attenuation of 8, this is likely benign, no follow-up imaging is recommended. URINARY BLADDER: Partially decompressed. PELVIC VISCERA: There is circumferential wall thickening of the rectal wall and some fullness at the anorectal junction concerning for proctitis, cannot rule out pathologic process. Attention to correlation with physical exam and follow-up outpatient GI consultation for screening colonoscopy recommended. PERITONEUM: No free air or fluid. LYMPH NODES: No lymphadenopathy. VASCULAR:Abdominal aorta normal in size, no aneurysm found. BONES, ABDOMINAL WALL AND SOFT TISSUES: Age-appropriate changes of the spine and skeletal system, no destructive osteolytic or osteosclerotic bone lesion found IMPRESSION: 1. There is fullness of renal pelvis bilaterally right more than left, probably extrarenal pelvis versus hydronephrosis with a transition at the UPJ, no stone or obstructing mass found, this could be congenital or developmental due to crossing vessel. 2. There is circumferential wall thickening of the rectum and fullness of the anorectal junction concerning for PROCTITIS, cannot rule out pathologic process and rectal mass. Please correlate with physical exam, follow up GI consultation recommended, correlation with colonoscopy. 3. Appendix not directly visualized however no dilated blind loop around the cecum to suggest appendicitis. 4. Gallbladder has been removed. Assessment & Plan Assessment & Plan (1) Right flank pain: Code(s): R10.9 - Unspecified abdominal pain Category: Medical (2) UPJ (ureteropelvic junction) obstruction: Code(s): N13.5 - Crossing vessel and stricture of ureter without hydronephrosis Category: Medical (3) Hematuria: Code(s): R31.9 - Hematuria, unspecified Category: Medical Plan Lasix renal scan which notes good perfusion and function of both kidneys with no evidence of obstruction. I have discussed with the patient and her that right sided pain is not related to the right kidney. Orders: Orders AMB Urinalysis Automated 12/08/23 Z13.9 - Encounter for screening, unspecified AMB Cystoscopy 12/08/23 N13.5 - Crossing vessel and stricture of ureter without hydronephrosis, R10.9 - Unspecified abdominal pain Patient Instructions: The patient had an opportunity to ask questions regarding treatment plan. The patient expressed understanding and agreement with the above treatment plan. The patient is aware they should contact our office by phone for worsening of their current condition or the appearance of new symptoms. Compliance is encouraged with any medications and followup testing that is ordered. It is a privilege to be allowed the opportunity to participate in the urologic care of your patient. If you have any questions or concerns regarding treatment for the above conditions please do not hesitate to contact me. The office telephone contact is [phone]. This note is constructed in part using voice recognition software. While every effort has been made to ensure accuracy superintendent general errors may have been included. Yours sincerely, Bharath Sands MD Coding Level of Care Code Est Pt Level 3 (79236) Diagnoses Right flank pain R10.9 UPJ (ureteropelvic junction) obstruction N13.5 Hematuria R31.9 CPT Codes Cystoscopy - CPT: 83123-[id number] ([id number])
== END 2023-12-08 10:27 | disposition home or self-care (01) ==
PROVIDERS: PCP Internal Medicine; Visit Provider Urology
DX: R10.9 Unspecified abdominal pain (principal); N13.5 Crossing vessel and stricture of ureter without hydronephrosis; R31.9 Hematuria, unspecified
CPT/HCPCS: 52000; 99213

== ENCOUNTER → 2023-12-08 09:27 | Outpatient (BNVA) | payer OTHER, SELFPAY | PROVIDERS: PCP Internal Medicine; Visit Provider Urology | DX: N13.5 Crossing vessel and stricture of ureter without hydronephrosis (principal); R10.9 Unspecified abdominal pain; R31.9 Hematuria, unspecified | CPT/HCPCS: 52000; 81003; 99212 ==